=== PATIENT | female | born 1975 | race Caucasian/White ===

== ENCOUNTER 2018-02-17 19:44 | Emergency (ER) | payer BC, MEDICAID, SELFPAY ==
[2018-02-17 19:45] VITALS: BP 142/78; PULSE 98; RESP 14; TEMP 36.7; O2SAT 97; BMI 38.1
[2018-02-17 20:39] LABS: Mucous, Urine 0 SEEN /hpf (<or=2+); Red Blood Cells-Urine 0 SEEN /hpf (0-5)
[2018-02-17 20:45] LABS: Color, Urine Amber (Yellow); Glucose, Dipstick Normal (Normal); Ketone-Dipstick Negative (Negative); Leukocyte Esterase-Dipstick Negative /ul (Negative); Nitrite-Dipstick Positive (Negative); Occult Blood-Urine Negative /ul (Negative); Protein-Dipstick Negative (Negative); Urine Clarity Cloudy (Clear); Urine Urobilinogen 8 mg/dl (Normal); Urine pH 6.5 (5.0 - 8.0)
[2018-02-17 20:49] LABS: Urine Bilirubin Dipstick 6 mg/dL (Negative)
[2018-02-17 20:50] LABS: Internal QC Validated? YES +Cl - CLEAR BKGD
[2018-02-17 20:51] LABS: Pregnancy, Urine Negative Negative
[2018-02-17 21:07] LABS: Squamous Epithelial Cells - UA 0-5 SEEN /hpf (5-10)
[2018-02-17 21:09] LABS: White Blood Cells 0-5 SEEN /hpf (0-5)
[2018-02-17 21:10] LABS: Bacteria RARE /hpf (None Seen); Transitional Epithelial - Ur 0-5 SEEN /hpf (0-5)
[2018-02-17 21:50] VITALS: BP 135/80; PULSE 80; RESP 14; O2SAT 99
[2018-02-17 22:19] VITALS: BP 124/70; PULSE 75; RESP 14; O2SAT 98
[2018-02-17] MEDS: Smz/Tmp Ds Tablet 1 TABLET PO (22:21)
--- NOTE | 2018-02-17 22:23 | ED.DCSUM_ITS ---
- ER Visit Summary Date of Service: 02/17/18 Chief Complaint: [Dysuria] History of Present Illness: The patient is a 42 F [presents the emergency department with 2 day history of dysuria, urgency, frequency. Patient describes some lower back pain and lower abdominal pain today. Patient denies any fever. Patient denies nausea or vomiting. Patient started taking over-the- counter Azo.] Physical Examination: [HEENT-PERRLA, EOMI. Cranial nerves II through XII grossly intact. TMs clear. Mucous membranes moist. No adenopathy. Cardiovascular-regular rate and rhythm without murmur or ectopy Lungs-clear to auscultation, chest wall stable without crepitus or subcu emphysema Abdomen-normoactive bowel sounds, soft. Patient has some mild tenderness over the suprapubic region. There is no rebound, rigidity, or perineal signs. Back exam-no real tenderness over the thoracic or lumbar paraspinal musculature. No significant CVA tenderness. Extremities-intact ?4, normal range of motion, normal pulses, atraumatic] Test Results: [Urinalysis obtained-grossly urine had an orange color due to the Azo the patient has been on. Urine was positive for nitrites, 0-5 WBCs, 05 RBCs , rare bacteria.] Emergency Department Course and Treatment: [Patient will be started on Bactrim and Pyridium] Treatment Plan: Patient to follow-up with her primary care physician within next 3-5 days. Patient to return if worsening pain, fever, vomiting, or condition should worsen in any way.] Disposition: [Discharged to home in stable condition] Impression: [Urinary tract infection] This note was generated with [employer] dictation software. It may contain incorrect words, spelling, and punctuation that were not noted in review of the chart prior to signing ED Disposition - Plan for ED Patient: Chief Complaint: Complaint Referrals: Silvano Machado MD [Primary Care Provider] -
--- NOTE | 2018-02-17 22:23 | ED.DEP ---
ED Disposition - Plan for ED Patient: Chief Complaint: Complaint Instructions: ED UTI Cystitis Female Prescriptions: Smz/Tmp Ds [Bactrim Ds] 1 tab PO BID #10 tab Phenazopyridine HCl [Pyridium] 200 mg PO TID #10 tab Referrals: Silvano Machado MD [Primary Care Provider] - 3-5 Days
== END 2018-02-17 22:32 | disposition home or self-care (01) ==
LOC: ED 20:46
PROVIDERS: Emergency Provider Emergency Medicine; Family Provider Family Medicine; PCP Family Medicine
DX: N39.0 Urinary tract infection, site not specified (principal); Z72.0 Tobacco use
CPT/HCPCS: 81001; 81025; 99282

== ENCOUNTER → 2018-02-28 15:42 | Outpatient (CLI) | payer BC, MEDICAID, SELFPAY ==
[2018-02-28 19:37] LABS: Chlamydia Trachomatis by PCR Negative (Negative); Neisserai gonorrhoeae by PCR Negative (Negative); Probe Check PASS; Sample Adequacy Control PASS; Specimen Processing Control PASS
== END ==
PROVIDERS: Visit Provider Family Medicine
DX: N39.0 Urinary tract infection, site not specified (principal)
CPT/HCPCS: 87086; 87088; 87491; 87591

== ENCOUNTER → 2018-03-07 13:00 | Outpatient (CLI) | payer BC, MEDICAID, SELFPAY ==
--- NOTE | 2018-03-07 13:00 | DT_ITS ---
This patient was seen during an EMR downtime March 04, 2018 - March 11, 2018. This patient may have a combination of paper and electronic documentation or all paper documentation. All documentation is viewable within the e-chart portion of [employer] for each patient visit.
[2018-03-20 10:59] LABS: HPV APTIMA, High Risk Negative (Negative)
== END ==
PROVIDERS: Visit Provider Obstetrics & Gynecology
DX: Z12.4 Encounter for screening for malignant neoplasm of cervix (principal)
CPT/HCPCS: 88175; G0145

== ENCOUNTER 2018-03-18 17:08 | Emergency (ER) | payer MEDICAID, BC, SELFPAY ==
[2018-03-18 17:09] VITALS: BP 130/70; PULSE 82; RESP 16; TEMP 36.7; O2SAT 97; BMI 38.7
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
--- NOTE | 2018-03-18 19:11 | ED.DEP ---
ED Disposition - Plan for ED Patient: Chief Complaint: Bite Instructions: ED Fingernail Infec Prescriptions: Amoxicillin/Potassium Clav [Augmentin 875-125 Tablet] 1 each PO BID #14 tablet Referrals: Silvano Machado MD [Primary Care Provider] -
[2018-03-18] MEDS: Amox/Clavulanate 875 MG Tablet PO (19:47)
[2018-03-18 19:53] VITALS: RESP 18
== END 2018-03-18 19:53 | disposition home or self-care (01) ==
LOC: ED 18:28
PROVIDERS: Emergency Provider Emergency Medicine; Family Provider Family Medicine; PCP Family Medicine
DX: L03.011 Cellulitis of right finger (principal); Z72.0 Tobacco use
CPT/HCPCS: 10060; 99283

== ENCOUNTER → 2018-03-28 16:26 | Outpatient (CLI) | payer MEDICAID, BC, SELFPAY ==
--- NOTE | 2018-03-28 16:28 | BI_ITS ---
MAMMOGRAPHY - BILATERAL SCREENING REASON FOR EXAM: Female, 42 years old. Routine annual screening examination. PERTINENT HISTORY: Non-contributory. TECHNIQUE: Digital bilateral breast ale (3D mammographic acquisition) in the CC and MLO projections. 2-D mediolateral oblique (MLO) and craniocaudad (CC) views of both breasts were obtained. CAD: Full Field Digital Mammography with Computer Added Detection was performed. COMPARISON: None. Baseline examination. FINDINGS: Breast Composition: There are scattered areas of fibroglandular density. There are no dominant masses or suspicious calcifications. No other significant abnormalities are identified. BI/SCREENING MAMM (CAD), BILAT IMPRESSION: Negative screening mammogram. Yearly followup mammogram recommended. (A) ASSESSMENT CATEGORY: BIRADS Category 1: Negative. A letter regarding these results will be sent to the patient by the facility within 30 days. Approximately 10% of breast cancers are not detected by mammography. A normal mammogram should not delay biopsy of a clinically suspicious abnormality. [id number] Electronically Signed: Nakul Solorzano MD at 8:07 EDT Tel [phone], Service support ,
== END ==
PROVIDERS: Family Provider Family Medicine; PCP Family Medicine; Visit Provider Obstetrics & Gynecology
DX: Z12.31 Encounter for screening mammogram for malignant neoplasm of breast (principal)
CPT/HCPCS: 77063; 77067

== ENCOUNTER 2018-06-30 00:21 | Emergency (ER) | payer BC, MEDICAID, SELFPAY ==
[2018-06-30 00:22] VITALS: BP 149/76; PULSE 96; RESP 16; TEMP 36.8; BMI 38.1
--- NOTE | 2018-06-30 00:58 | ED.VISSUMM ---
- ER Visit Summary Date of Service: 06/30/18 Chief Complaint: Right great toe pain History of Present Illness: The patient is a 42 F nontraumatic right great toe pain over the past month. States his ingrown toenails. She trims them down to the edge. Has not seen a shuttle route vehicle operator. Not a diabetic. No fevers. No drainage. Pain worse with palpation. Physical Examination: General: Alert and oriented ?3, no acute distress HEENT: Normocephalic, atraumatic. Moist mucosa membranes Neck: supple, nontender. Cardiovascular: Regular rate and rhythm, no murmurs Respiratory: Normal breath sounds, symmetric, no distress Abdomen: Soft, nontender, nondistended Extremities: Right foot: Great toe, ingrown nail, there is tenderness medial aspect lateral toenail. There is no fluctuance, no drainage. No streaking. Neuro: no focal neurological deficits. Test Results: [] Emergency Department Course and Treatment: Exam with ingrown toenails, no signs of infection. Patient will wear open toe shoes. Started on Motrin. She is given follow-up with podiatry. Treatment Plan: [] Disposition: Discharge Impression: 1. Right ingrown toenail This note was generated with [employer] dictation software. It may contain incorrect words, spelling, and punctuation that were not noted in review of the chart prior to signing ED Disposition - Plan for ED Patient: Disposition: Home or Assisted Living Chief Complaint: Wound Diagnosis: Ingrown toenail Instructions: Understanding Ingrown Toenails Prescriptions: Ibuprofen 600 mg PO 4X/DAY PRN #20 tablet PRN Reason: Pain Referrals: Silvano Machado MD [Primary Care Provider] - Axel Rodriguez DPM [STAFF PHYSICIAN] - 3-5 Days
--- NOTE | 2018-06-30 01:05 | ED.DCSUM_ITS ---
- ER Visit Summary Date of Service: 06/30/18 Chief Complaint: Right great toe pain History of Present Illness: The patient is a 42 F nontraumatic right great toe pain over the past month. States his ingrown toenails. She trims them down to the edge. 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 Not a diabetic. No fevers. No drainage. Pain worse with palpation. Physical Examination: General: Alert and oriented ?3, no acute distress HEENT: Normocephalic, atraumatic. Moist mucosa membranes Neck: supple, nontender. Cardiovascular: Regular rate and rhythm, no murmurs Respiratory: Normal breath sounds, symmetric, no distress Abdomen: Soft, nontender, nondistended Extremities: Right foot: Great toe, ingrown nail, there is tenderness medial aspect lateral toenail. There is no fluctuance, no drainage. No streaking. Neuro: no focal neurological deficits. Test Results: [] Emergency Department Course and Treatment: Exam with ingrown toenails, no signs of infection. Patient will wear open toe shoes. Started on Motrin. She is given follow-up with podiatry. Treatment Plan: [] Disposition: Discharge Impression: 1. Right ingrown toenail This note was generated with [employer] dictation software. It may contain incorrect words, spelling, and punctuation that were not noted in review of the chart prior to signing ED Disposition - Plan for ED Patient: Disposition: Home or Assisted Living Chief Complaint: Wound Diagnosis: Ingrown toenail Instructions: Understanding Ingrown Toenails Prescriptions: Ibuprofen 600 mg PO 4X/DAY PRN #20 tablet PRN Reason: Pain Referrals: Silvano Machado MD [Primary Care Provider] - Axel Rodriguez DPM [STAFF PHYSICIAN] - 3-5 Days
[2018-06-30] MEDS: Ibuprofen 600 MG Tablet PO (01:27)
[2018-06-30 01:32] VITALS: BP 149/76; PULSE 96; RESP 15
== END 2018-06-30 01:32 | disposition home or self-care (01) ==
LOC: ED 01:17
PROVIDERS: Emergency Provider Emergency Medicine; Family Provider Family Medicine; PCP Family Medicine
DX: L60.0 Ingrowing nail (principal); Z72.0 Tobacco use
CPT/HCPCS: 99283

== ENCOUNTER 2018-08-02 21:50 | Emergency (ER) | payer BC, MEDICAID, SELFPAY ==
[2018-08-02 21:51] VITALS: BP 131/90; PULSE 98; RESP 17; TEMP 36.4; O2SAT 97; BMI 34.9
--- NOTE | 2018-08-02 22:42 | ED.DCSUM_ITS ---
- ER Visit Summary Date of Service: 08/02/18 Chief Complaint: Fall History of Present Illness: The patient is a 42 F who slipped and fell down 6 outdoor wooden steps yesterday. Patient states they were wet and slippery. She has pain to her tailbone, left knee, and left anterior abdominal wall. She denies striking her head or loss of consciousness. Last dose of Tylenol was approximately 5 hours ago. Physical Examination: Vital signs unremarkable. Patient sitting upright in bed no acute distress. Head neck examination reveals no external sign of trauma. No C-spine tenderness. Heart is regular rate and rhythm. Lung sounds are clear. Abdomen is soft with no reproducible tenderness. Active bowel sounds are noted throughout. Back examination reveals no tenderness throughout the thoracic or lumbar region. She has reproducible tenderness with the posterior pelvis and coccyx region. No overlying skin changes. Extremity examination reveals no focal tenderness. Left knee exam is normal with no focal tenderness. She has normal strength and sensation throughout. Test Results: Pelvis x-ray is unremarkable. Coccyx x-ray reveals no evidence of fracture or dislocation. Emergency Department Course and Treatment: Patient was given naproxen here. On repeat evaluation she is resting comfortably. Test results are discussed with her. She is given a prescription for naproxen at home. Treatment Plan: [] Disposition: Discharge Impression: 1. Mechanical fall 2. Coccyx contusion This note was generated with [employer] dictation software. It may contain incorrect words, spelling, and punctuation that were not noted in review of the chart prior to signing ED Disposition - Plan for ED Patient: Disposition: Home or Assisted Living Chief Complaint: Fall Instructions: ED Contusion Sacrum Coccyx, ED Mechanical Fall Prescriptions: Naproxen [Naprosyn] 500 mg PO BID PRN PRN #20 tablet PRN Reason: Pain Referrals: Silvano Machado MD [Primary Care Provider] - 1 Week
--- NOTE | 2018-08-02 22:51 | RAD_ITS ---
STUDY: X-RAY - SACRUM/COCCYX REASON FOR EXAM: Female, 42 years old. Pain, fell yesterday TECHNIQUE: 3 view(s) of the sacrum and coccyx were obtained. COMPARISON: None. FINDINGS: Normal bilateral sacroiliac joints. Normal visualized sacral ala and fused sacral bodies. Normal sacrococcygeal junction with a normal angulation. Normal coccygeal segments. There are 2 fallopian tube clips on the left side of the pelvis. The presacral soft tissue structures are unremarkable. There are degenerative changes at the L5-S1 level with sclerosis endplates, joint space narrowing, facet arthropathy, the neuroforamen appears narrowed. RAD/Sacrum-Coccyx min 2 Views IMPRESSION: There is no acute displaced fracture or dislocation. Degenerative changes of the lower lumbar spine. Electronically Signed: Lucy Cardona MD at 23:33 EDT , Service support ,
--- NOTE | 2018-08-02 22:51 | RAD_ITS ---
STUDY: X-RAY - PELVIS REASON FOR EXAM: Female, 42 years old. Pain of the pelvis after falling yesterday. TECHNIQUE: One view of the pelvis was obtained. COMPARISON: None. FINDINGS: There is a non-specific bowel gas pattern. 2 tubal ligation type clips are present on the left side of the pelvis. Normal bilateral iliac wings, sacroiliac joints and visualized sacrum. Normal visualized bilateral superior and inferior pubic rami. Normal pubic symphysis. Normal ischial tuberosities. Normal visualized right femoral head. Normal right acetabulum. Normal right hip joint. Normal visualized left femoral head. Normal left acetabulum. Normal left hip joint. RAD/Pelvis 1 or 2 Views IMPRESSION: Normal x-ray examination of the pelvis. Electronically Signed: Sintia Pink MD at 23:12 EDT , Service support ,
[2018-08-02] MEDS: Naproxen 500 MG Tablet PO (23:35)
--- NOTE | 2018-08-02 23:41 | ED.DEP ---
ED Disposition - Plan for ED Patient: Disposition: Home or Assisted Living Chief Complaint: Fall Instructions: ED Mechanical Fall, ED Contusion Sacrum Coccyx Prescriptions: Naproxen [Naprosyn] 500 mg PO BID PRN PRN #20 tablet PRN Reason: Pain Referrals: Silvano Machado MD [Primary Care Provider] - 1 Week
[2018-08-03 00:06] VITALS: RESP 18
== END 2018-08-03 00:07 | disposition home or self-care (01) ==
PROVIDERS: Emergency Provider Emergency Medicine; Family Provider Family Medicine; PCP Family Medicine
DX: S30.0XXA Contusion of lower back and pelvis, initial encounter (principal); W10.9XXA Fall (on) (from) unspecified stairs and steps, initial encounter; Y93.9 Activity, unspecified; Y92.89 Other specified places as the place of occurrence of the external cause; Y99.9 Unspecified external cause status; Z72.0 Tobacco use
CPT/HCPCS: 72170; 72220; 99283

== ENCOUNTER → 2021-03-16 17:32 | Outpatient (CLI) | payer BC, MEDICAID, SELFPAY | PROVIDERS: Visit Provider Family Medicine | DX: R05 Cough (principal) | CPT/HCPCS: 87635; U0005; U0003 ==

== ENCOUNTER → 2021-06-08 12:14 | Outpatient (CLI) | payer BC, MEDICAID, SELFPAY | PROVIDERS: PCP Family Medicine; Referring Provider Family Medicine; Visit Provider Family Medicine | DX: Z20.822 Contact with and (suspected) exposure to COVID-19 (principal) | CPT/HCPCS: 87635; U0005; U0003 ==

== ENCOUNTER 2022-12-31 20:11 | Emergency (ER) | payer MEDICAID, SELFPAY ==
[2022-12-31 20:12] VITALS: BP 151/93; PULSE 109; RESP 22; TEMP 35.7; O2SAT 98; BMI 40.9
--- NOTE | 2022-12-31 20:30 | ED.RN ---
PT ARRIVES C/O DIZZINESS FRO 3D. STATES IT WAS SUDDEN ONSET WHILE SITTING AT THE DINNER TABLE. STATES IT CONTINUES TO OCCUR AT RANDOM. SOMETIMES WHEN SHE'S SITTING, SOMETIMES WHEN SHE'S WALKING AND SOMETIMES SHE WAKES UP DIZZY. LABS WINNIE. MONITOR APPLIED.
--- NOTE | 2022-12-31 20:45 | EDS_ITS ---
HPI History of Present Illness Chief Complaint: Dizziness Narrative Narrative: 47-year-old female presenting with vertiginous dizziness. He states he had this for several days. Denies headache. Denies nausea or vomiting. She states symptoms are worse when she turns her head. She states the world is spinning around. No chest pain or shortness of breath. Denies significant medical history PFSH PFS Medical History COVID-19 Encounter for screening for COVID-19 Home Medications naproxen 500 mg tablet 500 mg PO BID PRN PRN Pain #20 tabs 08/02/18 [Rx Last Taken Unknown] meclizine 25 mg tablet 25 mg PO TID PRN dizziness #30 tabs 12/31/22 [Rx Last Taken Unknown] Allergy/AdvReac Type Severity Reaction Status Date / Time No Known Allergies Allergy Verified 10/27/21 10:54 Social History Smoking Status: Current every day smoker tobacco type: cigarettes ROS ROS ED Constitutional Constitutional ED: Denies chills or fever(s) Eyes Eyes: Denies change in vision or diplopia ENT ENT ED: Denies rhinorrhea or sore throat Cardiovascular Cardiovascular: Denies chest pain or palpitations Respiratory/Chest Respiratory/Chest: Denies cough or dyspnea Gastrointestinal Gastrointestinal: Denies abdominal pain or constipation Genitourinary Genitourinary ED: Denies dysuria or hematuria Musculoskeletal Musculoskeletal: Denies arthralgias Integumentary Denies abscess Neurologic Neurologic: Denies headache(s) EXAM Physical Exam Const Vital Signs: 12/31/22 20:12 12/31/22 20:12 12/31/22 21:25 Temperature 96.2 F L 96.2 F L Temperature Source Temporal Temporal Pulse Rate 109 H 109 H 91 Respiratory Rate 22 H 22 H Blood Pressure 151/93 H 151/93 H 167/82 H Blood Pressure Mean 112 112 110 Pulse Ox 98 98 96 Oxygen Delivery Method Room Air Room Air Room Air Positive well nourished General Appearance ED: NAD HEENT Reports moist mucous membranes HEENT Narrative: Positive [place]-Hallpike. Nystagmus noted Eyes PERRL and EOMs intact bilaterally Neck no lymphadenopathy Chest Wall inspection of chest normal Resp normal respiratory effort and clear to auscultation bilaterally Cardio regular rate and regular rhythm Neuro oriented x3 and CN's II-XII intact bilaterally Sensorium / Orientation: alert Motor Exam: strength 5/5 throughout Psych mental status grossly normal MDM MDM MDM Narrative Medical decision making narrative: Given her neckPatient with vertiginous dizziness. Positive [place]-Hallpike. She is given meclizine and Phenergan. Will reevaluate on reevaluation at 10:12 PM patient is doing well. She states her dizziness is almost resolved. She is given meclizine for home. Impression: 1. Benign positional vertigo Discharge Plan Triage Chief Complaint: Dizziness ED Provider: Alan Amaya Dx/Rx/DC Orders Instructions: ED BPV Vertigo Prescriptions: New meclizine 25 mg tablet 25 mg PO TID PRN (Reason: dizziness) Qty: 30 0RF No Action naproxen 500 MG tablet 500 mg PO BID PRN PRN (Reason: Pain) Qty: 20 0RF Primary Care Provider: Silvano Machado Referrals: Qasim Garcia MD [Med Staff - Courtesy Staff] - 3-5 Days Silvano Machado MD [Primary Care Provider] - Disposition Disposition: Home, Self Care
[2022-12-31] MEDS: Meclizine HCl 25 MG Tablet PO (21:02)
[2022-12-31 21:25] VITALS: BP 167/82; PULSE 91; O2SAT 96
--- NOTE | 2022-12-31 21:45 | ED.RN ---
INFORMED THAT PT HAS HAD NO IMPROVEMENT FROM [facility].
--- NOTE | 2022-12-31 22:15 | ED.RN ---
THIS RN WENT TO ADMINISTER PHENRGREN PER ORDERS. PT STATES SHE FEELS BETTER AND SHE'D LIKE TO GO HOME. PT ENCOURAGED TO RETURN TO HOSPITAL FOR ANY FURTHER DIZZINESS UNRESOLVED WITH MD'S RX.
[2022-12-31 22:29] VITALS: BP 141/82; PULSE 91; RESP 20; O2SAT 95
--- NOTE | 2022-12-31 22:30 | ED.RN ---
PT REFUSED PHENERGREN. UNABLE TO CHART ON NOV B/C ANOTHER STAFF MEMBER IS CURRENTLY ACCESSING THE CHART.
== END 2022-12-31 22:33 | disposition home or self-care (01) ==
PROVIDERS: Emergency Provider Student in an Organized Health Care Education/Training Program; PCP Family Medicine; Visit Provider Student in an Organized Health Care Education/Training Program
DX: H81.10 Benign paroxysmal vertigo, unspecified ear (principal); F17.210 Nicotine dependence, cigarettes, uncomplicated; Z86.16 Personal history of COVID-19
CPT/HCPCS: 96372; 99284; A4216

== ENCOUNTER → 2023-02-08 | Outpatient (CLI) | payer MEDICAID, SELFPAY ==
--- NOTE | 2023-02-08 10:34 | RAD_ITS ---
EXAM: XR CHEST, 2 VIEWS CLINICAL INDICATION: persistent cough, tobacco abuse TECHNIQUE: Frontal and lateral views of the chest. COMPARISON: No relevant prior studies available. FINDINGS: LUNGS AND PLEURAL SPACES: Unremarkable. No consolidation or edema. No pneumothorax. No effusion. HEART: Unremarkable. Cardiac silhouette not enlarged. MEDIASTINUM: Central airways and mediastinal contour are unremarkable. BONES/JOINTS: Unremarkable. SOFT TISSUES: Unremarkable. RAD/Chest PA and Lateral IMPRESSION: No radiographic evidence of acute cardiopulmonary disease. Electronically Signed: Francois Mackey MD at 17:30 EDT ,
== END | disposition home or self-care (01) ==
LOC: MTRAD 10:34
PROVIDERS: PCP Family Medicine; Referring Provider Family Medicine; Visit Provider Family Medicine
DX: R05.3 Chronic cough (principal)
CPT/HCPCS: 71046

== ENCOUNTER → 2023-03-15 | Outpatient (CLI) | payer MEDICAID, SELFPAY ==
[2023-03-15 15:18] LABS: Absolute Lymphocyte Count 2.59 X10^3/uL (0.83-4.51); Absolute Neutrophil Count 6.6 X10^3/uL (2.0-7.7); Basophil# 0.08 X10^3/uL; Basophil% 0.8 % (0-1); Eosinophil# 0.58 X10^3/uL; Eosinophils% 5.5 % (0-5); Hematocrit 42.4 % (37-47); Hemoglobin 13.2 g/dL (12.0-15.0); Lymphocyte # 2.59 X10^3/ul (0.83-4.51); Lymphocyte % 24.7 % (19-41); Mean Corp Hgb Conc 31.1 g/dL (32-36); Mean Corpuscular Hgb 29.7 pg (27.0-32.0); Mean Corpuscular Volume 95.5 fL (81-99); Mean Platelet Vol. 13.2 fl (6.2-12.0); Monocyte# 0.61 X10^3/uL; Monocyte% 5.8 % (0-10); NRBC Flagged by Analyzer 0 % (0-5); Neutrophil # 6.61 X10^3/uL (2.7-7.7); Neutrophil % 62.9 % (47-70); Platelet Count 211 K/mm3 (150-450); Red Blood Count 4.44 M/mm3 (4.2-5.4); White Blood Count 10.5 K/mm3 (4.4-11.0)
[2023-03-15 16:01] LABS: ALB/GLOB Ratio 0.8 RATIO (0.9-2.4); AST(SGOT) 12 U/L (15-37); Alanine Aminotransfer ALT/SGPT 16 U/L (13-56); Albumin, Serum 3.4 g/dL (3.2-5.0); Alkaline Phosphatase 113 U/L (45-117); Anion Gap 5 (5-15); BUN 9 mg/dL (7-18); BUN/Creat Ratio 13.7 RATIO (10-20); CRP 9.56 mg/L (0.0-3.0); Calcium,Total 8.9 mg/dL (8.5-10.1); Chloride 108 mmol/L (98-107); Creatinine, Serum 0.66 mg/dL (0.55-1.02); EST Glomerular Filtration Rate 103 mL/min (>60); Est Glom Filt Rate - Afr Amer 125 mL/min (>60); Glucose 76 mg/dL (74-106); Potassium 3.9 mmol/L (3.5-5.1); Protein, Total 7.4 g/dL (6.4-8.2); Sodium Level 137 mmol/L (136-145); Thyroid Stim Hormone (TSH) 2.37 uIU/mL (0.358-3.74)
[2023-03-15 17:09] LABS: Microalbumin,Random Urine < 5.0 mg/L (NO RANGE EST.)
[2023-03-19 16:08] LABS: Deamidated Gliadin IgA 9 units (0-19); Deamidated Gliadin IgG 4 units (0-19); Endomysial Antibody IgA Negative (Negative); Immunoglobulin A 488 mg/dL (87-352); t-Transglutaminase IgA <2 U/mL (0-3)
== END | disposition home or self-care (01) ==
LOC: MFPLAB 13:50
PROVIDERS: PCP Family Medicine; Visit Provider Family Medicine
DX: R53.83 Other fatigue (principal); R19.7 Diarrhea, unspecified; I10 Essential (primary) hypertension
CPT/HCPCS: 36415; 80053; 82043; 82570; 82784; 83516; 84443; 85025; 86140; 86255

== ENCOUNTER → 2023-04-05 | Outpatient (CLI) | payer MEDICAID, SELFPAY ==
--- NOTE | 2023-04-05 10:38 | RAD_ITS ---
INDICATION: persistent SOB, cough, asthma EXAMINATION/TECHNIQUE: X-RAY - XR Chest 2 Views COMPARISON: 02/08/2023 FINDINGS: LINES/DEVICES: None. LUNGS: No consolidation. No pneumothorax. MEDIASTINUM: Aorta is atherosclerotic. CARDIAC SILHOUETTE: Not enlarged. BONES AND SOFT TISSUES: No acute abnormalities. RAD/Chest PA and Lateral IMPRESSION: No evidence of active intrathoracic disease. Electronically Signed: Ying Montez MD at 19:17 EDT ,
--- NOTE | 2023-04-05 10:38 | RAD_ITS ---
STUDY: X-RAY - PARANASAL SINUSES REASON FOR EXAM: Female, 47 years old. Nasal congestion and purulence TECHNIQUE: 4 view(s) of the paranasal sinuses were obtained. COMPARISON: None. FINDINGS: Normal visualized frontal, maxillary, ethmoidal and sphenoid sinuses. Normal visualized facial bones. The soft tissue structures are unremarkable. RAD/Sinuses min 3 Views IMPRESSION: Normal x-rays of the paranasal sinuses. Electronically Signed: Nakul Solorzano MD at 14:53 EDT ,
[2023-04-05 12:13] LABS: Absolute Lymphocyte Count 3.31 X10^3/uL (0.83-4.51); Absolute Neutrophil Count 9.6 X10^3/uL (2.0-7.7); Basophil# 0.09 X10^3/uL; Basophil% 0.6 % (0-1); Eosinophil# 0.99 X10^3/uL; Eosinophils% 6.7 % (0-5); Hematocrit 40.1 % (37-47); Hemoglobin 12.9 g/dL (12.0-15.0); Lymphocyte # 3.31 X10^3/ul (0.83-4.51); Lymphocyte % 22.5 % (19-41); Mean Corp Hgb Conc 32.2 g/dL (32-36); Mean Corpuscular Hgb 29.9 pg (27.0-32.0); Mean Corpuscular Volume 92.8 fL (81-99); Mean Platelet Vol. 12.9 fl (6.2-12.0); Monocyte# 0.69 X10^3/uL; Monocyte% 4.7 % (0-10); NRBC Flagged by Analyzer 0 % (0-5); Neutrophil # 9.56 X10^3/uL (2.7-7.7); Neutrophil % 65.2 % (47-70); Platelet Count 252 K/mm3 (150-450); RBC Distribution Width CV 14.6 % (11.6-14.6); RBC Distribution Width SD 49.8 fl (35.1-43.9); Red Blood Count 4.32 M/mm3 (4.2-5.4); White Blood Count 14.7 K/mm3 (4.4-11.0)
[2023-04-07 18:07] LABS: Alternaria tenuis <0.10 kU/L (Class 0); Ash, White <0.10 kU/L (Class 0); Aspergillus fumigatus <0.10 kU/L (Class 0); Beef <0.10 kU/L (Class 0); Bermuda Grass <0.10 kU/L (Class 0); Birch <0.10 kU/L (Class 0); Black Walnut <0.10 kU/L (Class 0); Cat Hair / Dander,Stand <0.10 kU/L (Class 0); Cedar, Mountain <0.10 kU/L (Class 0); Chocolate <0.10 kU/L (Class 0); Cladosporium herbarum <0.10 kU/L (Class 0); Cockroach, American 0.99 kU/L (Class II); Corn <0.10 kU/L (Class 0); Cottonwood <0.10 kU/L (Class 0); D farinae Mite 0.19 kU/L (Class 0/I); Dog Epithelia <0.10 kU/L (Class 0); Egg, Whole 0.25 kU/L (Class 0/I); Elm, American White <0.10 kU/L (Class 0); Immunoglobulin E 432 IU/mL (6-495); Maple/Box Elder <0.10 kU/L (Class 0); Milk (Cow) 0.21 kU/L (Class 0/I); Mouse Urine <0.10 kU/L (Class 0); Mulberry, White <0.10 kU/L (Class 0); Oak, White <0.10 kU/L (Class 0); Peanut <0.10 kU/L (Class 0); Pecan <0.10 kU/L (Class 0); Penicillium Notatum <0.10 kU/L (Class 0); Pigweed, Rough <0.10 kU/L (Class 0); Pork <0.10 kU/L (Class 0); Ragweed, Short/Common <0.10 kU/L (Class 0); Russian Thistle <0.10 kU/L (Class 0); Sheep Sorrel <0.10 kU/L (Class 0); Soybean <0.10 kU/L (Class 0); Sycamore, American <0.10 kU/L (Class 0); Timothy Grass <0.10 kU/L (Class 0); Wheat <0.10 kU/L (Class 0)
[2023-04-08 01:06] LABS: Immunoglobulin E 424 IU/mL (6-495)
== END | disposition home or self-care (01) ==
PROVIDERS: PCP Family Medicine; Referring Provider Family Medicine; Visit Provider Family Medicine
DX: J45.40 Moderate persistent asthma, uncomplicated (principal); R06.02 Shortness of breath; R05.9 Cough, unspecified; J32.9 Chronic sinusitis, unspecified; J30.2 Other seasonal allergic rhinitis; R76.8 Other specified abnormal immunological findings in serum
CPT/HCPCS: 36415; 70220; 71046; 82785; 85025; 86003; 86005